=== PATIENT | male | born 1990 | race Caucasian/White ===

== ENCOUNTER 2020-09-08 10:41 | Outpatient (CLI) | payer OTHER, SELFPAY | END 2020-09-08 10:42 | disposition home or self-care (01) | DX: H91.93 Unspecified hearing loss, bilateral (principal) | CPT/HCPCS: 92557; 92567 ==

== ENCOUNTER 2023-10-10 08:28 | Outpatient (CLI) | payer OTHER, SELFPAY | END 2023-10-10 08:29 | disposition home or self-care (01) | LOC: ANHBWCAUD 08:29 | PROVIDERS: Visit Provider Family Medicine | DX: H91.93 Unspecified hearing loss, bilateral (principal) | CPT/HCPCS: 92557; 92567 ==